=== PATIENT | female | born 1990 | race African-American/Black ===

== ENCOUNTER 2017-07-20 14:15 | Inpatient (IN) ==
[2017-07-20] MEDS ORDERED: SODIUM CHLORIDE 0.9% 1,000 ML IV STA (14:30)
[2017-07-20] MEDS ORDERED: ONDANSETRON 4 MG/2 ML VIAL IV STA (14:30)
[2017-07-20 14:38] LABS: Basophils # 0.1 10*3/uL (0.0-0.2); Basophils % 0.8 % (0.0-0.8); Eosinophils # 0.1 10*3/uL (0.0-0.87); Eosinophils % 1.3 % (0.00-10.9); Hemoglobin 10.9 GM/DL (12.0-16.0); Immature Granulocytes % 0.3 %; Immature Granulocytes Absolute 0.03 #; Lymphocytes # 3.1 10*3/uL (1.4-4.0); Lymphocytes % 30.4 % (21.3-54.2); Mean Corpuscular HGB Conc 32.1 GM/DL (32-36); Mean Corpuscular Hemoglobin 26 PG (27-34); Mean Corpuscular Volume 80.8 FL (87-102); Mean Platelet Volume 9.7 FL (9.6-12.0); Monocytes # 0.7 10*3/uL (0.11-0.8); Monocytes % 6.4 % (1.7-12.7); Neutrophils # 6.3 10*3/uL (1.4-7.4); Neutrophils % 60.8 % (38.7-73.9); Platelet Count 315 T/CUMM (130-400); Red Blood Count 4.21 MC/CUMM (3.8-5.5); Red Cell Distribution Width 15.8 % (9.3-17.3); White Blood Count 10.3 T/CUMM (4-12)
--- NOTE | 2017-07-20 14:40 | Emergency Department Note ---
Danilo Angel Hilary, am scribing for, and in the presence of, Anupam Hurst MD 14: 36. Natali Angel James D, MD, personally performed the services described in this documentation, ascribed by Saskia Carrasco in my presence, and it is both accurate and complete 439 . Arrival - Arrival Chief Complaint: Overdose Stated Complaint: OVERDOSE TYLENOL PM ED Nursing Triage Note: PT BROUGHT BY EMS FOR EVALUATION OF OVERDOSE/SI. PT TOOK APPROX #50 TYLENOL PM AROUND 1300 TODAY. 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 PT AROUSES TO VERBAL STIMULI BUT WILL NOT ANSWER ANY QUESTIONS AT TRIAGE. Mode of Arrival: Stretcher Limitations: No Limitations Source: Family, RN Notes Reviewed - History of Present Illness HPI Narrative: Pt is a 27 y/o female brought to the ED via EMS for evaluation of an overdose/ SI. Pt took 50 Tylenol PM (500mg) capsules around 1320 today. Her family states that she was also drinking at the time that she took the Tylenol. Pt does not respond to questions. No other complaints or problems stated in the ED. Onset (ago): minute(s) Consistency: constant Severity: severe Allergies/Adverse Reactions: Allergies Allergy/AdvReac Type Severity Reaction Status Date / Time No Known Allergies Allergy Verified 07/20/17 14:22 Home Medications: Home Medications Medication Instructions Recorded Confirmed Type Amoxicillin/Clav Tab [Augmentin 875 mg PO Q12H #20 tablet 04/06/16 Rx Tab] Cetirizine HCl [Cetirizine Chew 10 mg PO DAILY #20 tablet 04/06/16 Rx Tab] Review of System - Review of System ROS unobtainable: due to mental status - Review of System Constitutional: Present: fever Medical,Surgical,& Family Hx - Medical History Psychological: History of: Depression - Family History Family History: Reports;: Family Cancer - Social History Smoking Status: Unknown if ever smoked Frequency of Alcohol Use: Unknown Type of Drug Use: Unknown Exam Physical Examination: GENERAL: This is a well-nourished, well-developed black female, lethargic, smells of alcohol, in no apparent distress. VITAL SIGNS: Temperature: 97.4 Pulse: 122 Respiratory: 16 Blood Pressure: 108 /72 O2Sat: 100 HEENT: Head is normocephalic and atraumatic. Pupils are equally round and reactive to light. Extraocular movement are intact. Oropharynx is benign with moist mucous membranes. NECK: Neck is soft and supple without tenderness. There are no masses. There is no lymphadenopathy. LUNGS: Lungs are clear to auscultation bilaterally. Chest rises symmetrically. There is no chest wall tenderness. CV: Heart is rapid rate and rhythm without murmurs, rubs, or gallops. ABDOMEN: Abdomen is soft, non-tender to palpation. There are no abnormal masses palpated. There is no organomegaly. Bowel sounds are present and active. SKIN: Skin is warm and dry. No rash. EXTREMITIES: Patient has full range of motion without tenderness. There is no pedal edema. NEUROLOGIC: Lethargic. Awake. Cranial nerves II through XII are grossly intact. There are no motorsensory deficits. Vital Signs: Vital Signs Temperature 97.4 F L 07/20/17 14:15 Pulse Rate 122 H 07/20/17 14:15 Respiratory Rate 16 07/20/17 14:15 Blood Pressure 108/72 07/20/17 14:15 O2 Sat by Pulse Oximetry 100 07/20/17 14:15 Course - Consultations Consultation #1: Discussed with hospitalist. Patient will be admitted to their service. Time: 15:22 Results - Labs CBC & BMP: 07/20/17 14:30 Lab Results: I have reviewed the patients labs Labs: Laboratory Tests 07/20/17 14:30 WBC 10.3 RBC 4.21 Hgb 10.9 L Hct 34.0 L MCV 80.8 L MCH 26 L Plt Count 315 Laboratory Tests 07/20/17 07/20/17 14:30 14:30 INR 1.0 Acetaminophen 141.2 H Laboratory Tests 07/20/17 07/20/17 14:30 14:30 PT Patient/Control Mix 11.1 Serum Alcohol 18 - EKG EKG results: interpreted by ERMD - Impressions EKG: Normal sinus rhythm with a rate of 73, right axis deviation, normal ST-T waves. - Diagnostic Findings Procedure: CT: image reviewed by me (CT head: No acute intracranial lesion or hemorrhage.) Disposition Clinical Impression: Acetaminophen overdose, Alcohol intoxication Case discussed with: patient Condition: Stable Time of Disposition: 14:40
[2017-07-20 15:00] LABS: PT Patient Result 11.1 SECS
--- NOTE | 2017-07-20 15:07 | CT Report ---
Referring physician: Anupam Hurst Exam: CT brain without contrast Date: 07/20/2017 Comparison: 05/15/2014 Reason: Alteration of consciousness Technique: Axial images of the head were obtained without the use of contrast. Total DLP was 970.10 mGy*cm. Findings: No hydrocephalus or midline shift is present. There is no evidence of an acute infarction, recent intracranial hemorrhage or abnormal mass effect. The osseous structures appear intact. The mastoid air cells and visualized paranasal sinuses are clear. Impression: No acute intracranial abnormality is identified. The CT exam was performed using one or more of the following dose reduction techniques: Automated exposure control and adjustment of the mA and/or kV according to patient size. PROCEDURE INTERPRETED AT [facility] DEPARTMENT OF RADIOLOGY Final Report Signed by: Dr. Lyn Curtis
[2017-07-20] MEDS ORDERED: ACETYLCYSTEINE IV ONE ×4 (15:20→20:20)
[2017-07-20] MEDS ORDERED: DEXTROSE 5% IV ONE ×4 (15:20→20:20)
[2017-07-20] MEDS ORDERED: ONDANSETRON 4 MG/2 ML VIAL ONE (15:33)
[2017-07-20] MEDS ORDERED: ONDANSETRON 4 MG/2 ML VIAL IV PRN (15:49)
[2017-07-20] MEDS ORDERED: ALBUTEROL 2.5 MG/3 ML NEB RESP TX PRN (15:49)
[2017-07-20] MEDS ORDERED: SODIUM CHLORIDE 0.9% 1,000 ML IV SCH (16:00)
--- NOTE | 2017-07-20 16:12 | Hospitalist History & Physical ---
Assessment and Plan (1) Acetaminophen overdose Status: Acute Current Visit: Yes (2) Alcohol intoxication Status: Acute Assessment and plan: Plan for this patient will be admitting her to ICU. She will need treatment with N-acetylcysteine. Orders have already been written in the ER and doses have already been started. We are going to monitor her chemistry and INR every 12 hours while she is receiving the medications. Consult social media content specialist service for their assistance with her psychiatric illness. Current Visit: Yes History of Present Illness Chief complaint: Drug overdose History of present illness: Ms. Rasmussen is a 27 year old female with no significant past medical problems has been under a lot of stress lately. Last week she started talking about dying. She is also talking about hurting herself. She did not seek any medical attention. She checks her sister today and said please take care of her children. They went over to her house and found the empty bottle of Tylenol PM. Patient had told him that she took the whole bottle which was 50 tablets. She is also consumed some beer and she usually does not drink alcohol. Patient presented to our ER fairly quickly and I was consulted to admit her through the emergency room Home Medications Medication Instructions Recorded Confirmed Type Amoxicillin/Clav Tab [Augmentin 875 mg PO Q12H #20 tablet 04/06/16 Rx Tab] Cetirizine HCl [Cetirizine Chew 10 mg PO DAILY #20 tablet 04/06/16 Rx Tab] Allergies Allergy/AdvReac Type Severity Reaction Status Date / Time No Known Allergies Allergy Verified 07/20/17 14:22 Medical,Surgical,& Family Hx - Medical History Psychological: History of: Depression - Surgical History Reproductive Surgeries: Surgical HX of;: Section - Family History Family History: Reports;: Family Cancer - Social History Smoking Status: Unknown if ever smoked Frequency of Alcohol Use: Unknown Type of Drug Use: Unknown ROS unobtainable: due to mental status Exam - Constitutional Vitals: Period Temp Pulse Resp BP Sys/Beck Pulse Ox Last 24 Hr 97.4 F 122 16 108/72 100 General appearance: normal weight - Head Head exam: Present: normal inspection - Eye Pupils: Present: ALBERTO - ENT ENT exam: Present: normal exam - Neck Neck exam: Present: normal inspection - Respiratory Respiratory exam: Present: clear to auscultation bilaterally - Cardiovascular Cardiovascular exam: Present: regular rate and rhythm - GI/Abdominal GI/Abdominal exam: Present: hypoactive bowel sounds - Extremities Exam Extremities exam: Present: normal inspection - Back Exam Back exam: Present: normal inspection - Neurological Exam Neurological exam: Present: alert (But will not talk) - Psychiatric Psychiatric exam: Present: depressed, flat affect - Skin Skin exam: Present: normal color Results - Labs CBC & BMP: 07/20/17 14:30
--- NOTE | 2017-07-20 16:16 | XRay Report ---
Portable chest Date: 07/20/2017 Clinical history: Tylenol overdose Comparison: 02/28/2014 Technique: Portable AP sitting chest Findings: The heart is normal in size. Rotation of patient on the film with minimal atelectasis at the lung bases. Unremarkable mediastinum and osseous structures. Impression: Limited rotated film. Minimal atelectasis at the lung bases. PROCEDURE INTERPRETED AT [facility] DEPARTMENT OF RADIOLOGY Final Report Signed by: Dr. Lyn Curtis
[2017-07-20 16:36] LABS: Alanine Aminotransferase 17 U/L (13-56); Albumin 3.7 G/DL (3.4-5.0); Alkaline Phosphatase 47 U/L (45-117); Aspartate Amino Transferase 13 U/L (0-37); Bilirubin,Total < 0.39 MG/DL (0.2-1.0); Blood Urea Nitrogen 9 MG/DL (7-18); Calcium 8.9 MG/DL (8.5-10.1); Glucose 74 MG/DL (74-106); Osmolality,Calculated 274.5 MOS/KG (273-304); Potassium 3.2 MMOL/L (3.5-5.1); Sodium 139 MMOL/L (136-145); Total Protein 7.1 G/DL (6.4-8.3)
[2017-07-20] MEDS ORDERED: HALOPERIDOL 5 MG/ML AMP ONE ×2 (17:19→17:34)
[2017-07-20] MEDS ORDERED: PANTOPRAZOLE 40 MG VIAL IV ONE (21:43)
[2017-07-20] MEDS: PANTOPRAZOLE 40 MG VIAL IV SCH (22:00)
[2017-07-20] MEDS: SODIUM CHLOR 0.45% KCL 20 MEQ 20 MEQ/1,000 ML BAG IV SCH (23:15)
[2017-07-21 05:36] LABS: Albumin 2.8 G/DL (3.4-5.0); Bilirubin,Total 0.8 MG/DL (0.2-1.0); Calcium 7.9 MG/DL (8.5-10.1); Osmolality,Calculated 279.3 MOS/KG (273-304); Potassium 3.5 MMOL/L (3.5-5.1); Total Protein 5.8 G/DL (6.4-8.3)
[2017-07-21 06:07] LABS: INR 1.2; PT Patient Result 12.5 SECS
--- NOTE | 2017-07-21 07:42 | EKG Report ---
Stationary ECG Study [facility] ER Test Date: 07/20/2017 3:49:26 PM Pat Name: MAKI DIAZ [facility] F Budget Controller: : 1990 Requested by: Anupam Knutson Order Number: [id number] Reading MD: JULIAN WASHBURN Intervals [place] Rate: 73 P: 76 IA: 165 QRS: 95 QRSD: 88 T: 68 QT: 376 QTc: 401 Interpretive Statements SINUS RHYTHM RIGHT AXIS DEVIATION Electronically Signed On 07-21-17 13:53:50 CDT by JULIAN WASHBURN [email or web address]
--- NOTE | 2017-07-21 11:11 | Hospitalist Progress Note ---
<Manuela Bishop - Last Filed: 07/21/17 11:08> Assessment and Plan (1) Acetaminophen overdose Status: Acute Assessment and plan: Tylenol level 7.4 today. Down from 141 on admission. Monitor patient in ICU. Consult [facility] for psych eval. BMP/CBC/INR checks. Current Visit: Yes (2) Alcohol intoxication Status: Acute Current Visit: Yes Hospitalist: Subjective Interval history: Ms. Rasmussen is a 27 yr old black female with no known medical history that presented to the ED yesterday after consuming excessive alcohol and 50 Tylenol PM tablets. Pt. stated on admission that she wanted to harm herself due to increased stress. She was treated with N-acteylcysteine and IV fluids overnight. Pt seen and examined in ED Bed 20 with family present at the bedside. Pt. is alert and oriented today without any complaints. Pt. denies any acute changes overnight. Pt. has very flat affect. Pt. questioned about need for counseling; she denied need and stated she did not want any help. [place] has been consulted for evaluation of patient. We will continue current treatment and monitor patient closely. Exam - Constitutional Vitals: Period Temp Pulse Resp BP Sys/Beck Pulse Ox Last 24 Hr 97.4 F-97.4 F 65-122 16-28 102-122/69-82 100-100 General appearance: normal weight, no acute distress - Head Head exam: Present: normal inspection, normocephalic - Eye Eye exam: Present: EOMI. Absent: scleral icterus Pupils: Present: ALBERTO - ENT ENT exam: Present: normal exam - Neck Neck exam: Present: normal inspection - Respiratory Respiratory exam: Present: clear to auscultation bilaterally. Absent: wheezes - Cardiovascular Cardiovascular exam: Present: regular rate and rhythm. Absent: tachycardia - GI/Abdominal GI/Abdominal exam: Present: normal bowel sounds, soft. Absent: tenderness - Extremities Exam Extremities exam: Present: normal inspection, normal capillary refill, full ROM , other (bilateral lower extremity restraints). Absent: edema - Neurological Exam Neurological exam: Present: alert, oriented X3 - Psychiatric Psychiatric exam: Present: normal affect, normal mood - Skin Skin exam: Present: normal color, warm, dry Results - Labs CBC & BMP: 07/20/17 14:30 07/21/17 04:55 Lab Results: I have reviewed the past 24 hour labs <Amanda,Hatem - Last Filed: 07/21/17 17:09> Assessment and Plan (1) Acetaminophen overdose Status: Acute Assessment and plan: Follow-up psychiatric evaluation. Likely transfer to [facility] tomorrow. Current Visit: Yes Qualifiers: Encounter type: initial encounter Injury intent: intentional self-harm Qualified Code(s): T39.1X2A - Poisoning by 4-Aminophenol derivatives, intentional self-harm, initial encounter Hospitalist: Subjective Interval history: I have personally seen and examined this patient today. I agree with the below note as prepared by the advanced practice provider. I agree with the assessment and plan. The patient was pleasant and cooperative with me in the intensive care unit at the time of my evaluation. She reports that this was an intentional consumption. She denies any previous attempts at suicide. She reports an increased amount of stress in her life. Exam - Constitutional Vitals: Period Temp Pulse Resp BP Sys/Beck Pulse Ox Last 24 Hr 98.0 F-98.3 F 60-87 12-21 103-126/56-85 97-100 Results - Labs CBC & BMP: 07/20/17 14:30 07/21/17 15:07 Lab Results: I have reviewed the past 24 hour labs
[2017-07-21 15:50] LABS: INR 1.1; PT Patient Result 12.1 SECS
[2017-07-21] MEDS: SODIUM CHLOR 0.45% KCL 20 MEQ 20 MEQ/1,000 ML BAG IV SCH ×2 (16:00→19:31)
[2017-07-21 16:05] LABS: Bilirubin,Total 0.5 MG/DL (0.2-1.0); Calcium 8.5 MG/DL (8.5-10.1); Osmolality,Calculated 280.1 MOS/KG (273-304); Potassium 4.2 MMOL/L (3.5-5.1); Total Protein 6.1 G/DL (6.4-8.3)
[2017-07-21] MEDS: PANTOPRAZOLE 40 MG VIAL IV SCH (20:04)
[2017-07-21] MEDS: CLORAZEPATE 3.75 MG TABLET PO PRN (21:42)
[2017-07-22 05:33] LABS: INR 1.1; PT Patient Result 11.7 SECS
[2017-07-22 06:01] LABS: Albumin 3.2 G/DL (3.4-5.0); Bilirubin,Total 0.5 MG/DL (0.2-1.0); Calcium 8.5 MG/DL (8.5-10.1); Osmolality,Calculated 274.4 MOS/KG (273-304); Potassium 3.9 MMOL/L (3.5-5.1); Total Protein 6.3 G/DL (6.4-8.3)
[2017-07-22 08:20] VITALS: BP 117/73
--- NOTE | 2017-07-22 10:26 | Discharge Summary ---
Hospital Course - Hospital Course Hospital Course: 27-year-old -[place] female took 50 Tylenol PM in attempt to hurt herself. She also consumed some beer to wash them down. Patient received complete treatment of Mucomyst. Her liver enzymes are unremarkable today. His liver enzymes need to continue to be followed. Her initial Tylenol level is 141 and dropped down to 2.3. Patient will be transferred to [facility] for further counseling for depression. Her liver enzymes should be monitored 3 times a week for the next 2 weeks. - Time spent with patient Time with patient DS: Less than 30 minutes (25 min) Discharge Plan - Discharge Data Disposition: Disch/Xfer to Psych Hos Condition at Discharge: Stable Discharge Diet: regular diet Activity: resume usual activities as tolerated Hygiene: no restrictions Weight Bearing at Discharge: full weight bearing - Discharge Medications Continue No Known Home Medications [No Known Home Medications] - Follow Up or Referral - Forms/Instructions Exam - Constitutional Vitals: Period Temp Pulse Resp BP Sys/Beck Pulse Ox Last 24 Hr 98.0 F-98.6 F 56-87 12-21 98-126/56-85 96-100 General appearance: normal weight, no acute distress - Respiratory Respiratory exam: Present: clear to auscultation bilaterally - Cardiovascular Cardiovascular exam: Present: regular rate and rhythm. Absent: systolic murmur - GI/Abdominal GI/Abdominal exam: Present: normal bowel sounds, soft. Absent: tenderness - Neurological Exam Neurological exam: Present: alert, oriented X3, CN II-XII intact, reflexes normal. Absent: motor sensory deficit Discharge Results Procedures and tests throughout hospitalization: Pending Orders 07/21/17 11:30 MRSA Surveillence, Inf Control Routine 07/22/17 15:00 Comprehensive Metabolic Panel Q12H Prothrombin Time INR Q12H Labs on day of discharge: Labs from last 24 hours 07/22/17 07/22/17 07/22/17 04:40 04:40 04:39 INR 1.1 PT Patient/Control Mix 11.7 Sodium 140 Potassium 3.9 Chloride 110 H Carbon Dioxide 23 Anion Gap 10.9 BUN 5 L Creatinine 0.60 GFR Calculation 156 BUN/Creatinine Ratio 8.00 Glucose 83 Calculated Osmolality 274.4 Calcium 8.5 Total Bilirubin 0.50 AST 20 ALT 14 Alkaline Phosphatase 38 L Total Protein 6.3 L Albumin 3.2 L Globulin 3.1 Albumin/Globulin Ratio 1.0 L Acetaminophen 2.3 L 07/21/17 07/21/17 07/21/17 15:07 15:07 05:00 INR 1.1 PT Patient/Control Mix 12.1 Sodium 142 Potassium 4.2 Chloride 112 H Carbon Dioxide 25 Anion Gap 9.2 BUN 6 L Creatinine 0.80 GFR Calculation 126 BUN/Creatinine Ratio 7.00 Glucose 102 Calculated Osmolality 280.1 Calcium 8.5 Total Bilirubin 0.50 AST 20 ALT 18 Alkaline Phosphatase 43 L Total Protein 6.1 L Albumin 3.0 L Globulin 3.1 Albumin/Globulin Ratio 0.9 L Acetaminophen 7.4 L Preliminary micro results at discharge 07/21/17 11:30 MRSA Surveillance Culture - Preliminary Nasal Passage No MRSA isolated. DS: Provider Date of admission: 07/20/17 15:09 Primary care physician: . No PCP Attending physician on admission: Richard Bolden MD Consults: 07/20/17 15:55 Consult to Case Mgmt/Social Srvs [CONS] Routine Reason for Case Mgmt/Social Srvs: Discharge Planning Psychiatric Management Discharging clinician: Carissa Rasmussen MD
[2017-07-22] MEDS: CLORAZEPATE 3.75 MG TABLET PO PRN (10:28)
[2017-07-22] MEDS ORDERED: DOCUSATE SODIUM 100 MG CAPSULE PO SCH (10:30)
== END 2017-07-22 11:27 | DRG 812 ==
LOC: EDUNIT# → EDBD → N.ED 14:15 → SUATTDRO 15:09 → N.EDINP 15:09 → N.ICU 07-21 10:22
PROVIDERS: ADMIT Internal Medicine; ATTEND Internal Medicine